=== PATIENT | male | born 1960 | race Caucasian/White ===

== ENCOUNTER → 2019-10-11 | Outpatient (CLI) | payer BC | LOC: M.CT 10:37 | DX: R91.8 Other nonspecific abnormal finding of lung field (principal); R06.00 Dyspnea, unspecified; R59.0 Localized enlarged lymph nodes ==

== ENCOUNTER → 2020-01-17 | Outpatient (CLI) | payer BC | LOC: M.CT 01-08 08:13 | DX: J43.9 Emphysema, unspecified (principal); J84.10 Pulmonary fibrosis, unspecified; I25.10 Atherosclerotic heart disease of native coronary artery without angina pectoris; R91.8 Other nonspecific abnormal finding of lung field ==

== ENCOUNTER → 2020-01-20 | Outpatient (CLI) | payer BC ==
[2020-01-20 10:14] LABS: ABSOLUTE BASOPHILS 0.1 thou/uL (0.0-0.2); ABSOLUTE EOSINOPHILS 0.3 thou/uL (0.0-0.7); ABSOLUTE LYMPHOCYTES 1.4 thou/uL (0.8-5.3); ABSOLUTE MONOCYTES 0.6 thou/uL (0.0-1.2); ABSOLUTE NEUTROPHILS 6.7 thou/uL (1.6-8.1); BASOPHILS 1.2 %; EOSINOPHILS 3.6 %; HEMATOCRIT 49.4 % (42.0-52.0); HEMOGLOBIN 17.2 gm/dL (14.0-18.0); LYMPHOCYTES 15.6 %; MCH 31.2 pg (26.0-34.0); MCHC 34.8 g/dL (28.0-37.0); MCV 89.6 fL (80.0-100.0); MONOCYTES 6.3 %; MPV 8.8 fl. (7.2-11.1); NUCLEATED RBCS 0 /100WBC; PLATELET COUNT* 230 thou/uL (150-400); POLYS 73.3 %; RBC 5.51 mil/uL (4.50-6.00); RDW-CV 14.2 % (10.5-14.5); WBC 9.2 thou/uL (4.0-11.0)
[2020-01-20 10:27] LABS: ALBUMIN 3.8 g/dL (3.4-5.0); CALCIUM 8.8 mg/dL (8.5-10.1); POTASSIUM 3.9 mmol/L (3.5-5.1); TOTAL BILIRUBIN 1.2 mg/dL (<0.1-1.0); TOTAL PROTEIN 8.5 g/dL (6.4-8.2)
[2020-01-20 11:14] LABS: ESR (SEDRATE) 23 mm/hr (0-20)
[2020-01-20 19:06] LABS: IgA 425 mg/dL (61-437); IgG 1654 mg/dL (603-1613); IgM 136 mg/dL (20-172)
[2020-01-22 08:08] LABS: ANA INTERPRETATION Negative (Negative); ANTI-SSA <0.2 AI (0.0-0.9); ANTIJO-I AB <0.2 AI (0.0-0.9)
== END ==
LOC: M.LAB 09:11
DX: J84.10 Pulmonary fibrosis, unspecified (principal); J43.9 Emphysema, unspecified; M19.90 Unspecified osteoarthritis, unspecified site

== ENCOUNTER → 2020-04-21 | Outpatient (CLI) | payer BC | LOC: M.PUL 08:56 | DX: J84.9 Interstitial pulmonary disease, unspecified (principal) ==

== ENCOUNTER → 2020-07-31 | Outpatient (CLI) | payer BC ==
--- NOTE | 2020-08-07 12:10 | PF ---
[address] [address] PULMONARY FUNCTION REPORT Name: BLAKE TERESA Room: [facility].#: [id number] Admission: 07/31/20 Attend Phys: Saritha BUSINESS DEVELOPMENT EXECUTIVEBowen Gannony Discharge: Date of : 56 Report #: [id number] THIS REPORT FOR: cc: Roney Mcallister Dean R. FNP-C ~ Milton Santillan MD DATE OF SERVICE: 07/31/2020 The FEV1/FVC ratio is normal at 76% with an FVC decreased to 71% and FEV1 also decreased to 71%. The [id number] is also decreased to 69%. After the administration of a bronchodilator, there is no significant change in any of these values. The patient's post-bronchodilator FEV1 is noted to be 2.70 liters. The total lung capacity is significantly decreased to 57%. The residual volume is also markedly decreased to 29% with a DLCO as adjusted for hemoglobin decreased to 37%. The patient's flow volume loop is concave upwards. IMPRESSION: 1. There is marked restriction noted with the total lung capacity decreased to 57% only. 2. The patient's flow volume loop is concave upwards. therefore likely there is a component of obstruction as well, possibly [id number]. 3. DLCO as adjusted for hemoglobin decreased to 37%. <ELECTRONICALLY SIGNED> By: Milton Santillan MD 08/07/20 1210 1927 MD sandeep Macias
== END ==
LOC: M.PUL 09:30
PROVIDERS: ATTEND Registered Nurse
DX: J84.9 Interstitial pulmonary disease, unspecified (principal)

== ENCOUNTER → 2020-08-11 | Outpatient (CLI) | payer BC | LOC: M.PUL 08-04 14:14 → M.CT 07:58 | PROVIDERS: ATTEND Registered Nurse | DX: J43.9 Emphysema, unspecified (principal); R91.8 Other nonspecific abnormal finding of lung field; I25.10 Atherosclerotic heart disease of native coronary artery without angina pectoris; J98.4 Other disorders of lung ==

== ENCOUNTER → 2021-01-28 | Outpatient (CLI) | payer BC ==
--- NOTE | 2021-02-20 12:38 | PF ---
[address] [address] PULMONARY FUNCTION REPORT Name: BLAKE TERESA Room: [facility].#: [id number] Admission: 01/28/21 Attend Phys: Saritha Bateman Discharge: Date of : 56 Report #: [id number] THIS REPORT FOR: cc: Roney Mcallister Dean R. FNP-C Pervez, Adeel MD ~ DATE OF VISIT: 01/28/2021 PULMONARY FUNCTION TEST The FEV1/FVC ratio is normal at 76% with an FVC decreased to 73% and FEV1 also decreased to 74%. The FEF 25-75 is decreased to 76%. After the administration of a bronchodilator, there is no significant increase in any of these values. The patient's post-bronchodilator FEV1 is 2.67 liters. The flow volume loop is concave upwards. The total lung capacity is decreased to 53% with a residual volume also markedly decreased to only 12%. The DLCO as adjusted for hemoglobin is moderately decreased to 32%. IMPRESSION: 1. There is severe restriction with a total lung capacity decreased to only 53%. The restriction seen by lung volumes appears to be out of proportion to the spirometry. Therefore, if clinically, appropriate, then may consider repeating this test. 2. There is also a restrictive pattern on spirometry, but less significant than on lung volumes. In addition, the flow volume loop is concave upwards, which suggest the presence of underlying obstruction likely mild to moderate. 3. The DLCO as adjusted for hemoglobin is markedly decreased to 32%. <ELECTRONICALLY SIGNED> By: Milton Santillan MD 02/20/21 1238 51 [id number] Santillan MD /nt
--- NOTE | 2021-02-20 12:38 | PF ---
[address] [address] PULMONARY FUNCTION REPORT Name: BLAKE TERESA Room: [facility]#: [id number] Admission: 01/28/21 Attend Phys: Saritha Bateman Discharge: Date of : 56 Report #: [id number] THIS REPORT FOR: cc: Roney Mcallister Dean R. FNP-C Pervez, Adeel MD ~ DATE OF VISIT: 02/19/2021 SPIROMETRY: The FEV1/FVC ratio is normal at 76% with an FVC decreased to 73% and FEV1 decreased to 74%. The FEF 25-75 is also decreased to 76%. After the administration of bronchodilator, there is no significant increase in any of these values. The patient's post-bronchodilator FEV1 is 2.67 liters. FLOW VOLUME LOOP: Concave upwards. LUNG VOLUMES: The total lung capacity is markedly decreased to 53% with residual volume markedly decreased to only 12%. DIFFUSION CAPACITY: The DLCO as adjusted for hemoglobin is markedly decreased to 32%. IMPRESSION: 1. There is a severe restriction noted by lung volumes with total lung capacity decreased to 53%. There is also a restrictive pattern on spirometry; however, this is less marked than restriction seen on lung volumes. Therefore, if clinically appropriate, then repeating this test could be a consideration. 2. The flow volume loop is also concave upwards. This is suggestive of underlying obstruction as well, likely mild to moderate, without reversibility. 3. The DLCO as adjusted for hemoglobin is decreased to 37%. <ELECTRONICALLY SIGNED> By: Milton Santillan MD 02/20/21 1238 1955 [id number] Santillan MD /nt
== END ==
LOC: M.PUL 09:00
PROVIDERS: ATTEND Registered Nurse
DX: J84.9 Interstitial pulmonary disease, unspecified (principal)